=== PATIENT | female | born 1990 | race Caucasian/White ===

== ENCOUNTER 2016-07-28 17:34 | Outpatient (CLI) | payer OTHER ==
[~2016-07-28 17:34] MED LIST: ALBUTEROL0.63 MG/3 IH; AUGMENTIN875 MG PO; BACTRIM,SEPT1 TABLET PO; CAMILA0.35 MG PO; CHROMAGEN,1 CAPSULE PO; FLEXERIL10 MG PO; FLONASE16 G1 BOTH NARES; IBUPROFEN800 MG PO; MACROBID100 MG PO; MOTRIN600 MG PO; MOTRIN800 MG PO; MUCINEX600 MG PO; Motrin PO; NOHOMEMEDS; PEN-VEE K,VEET500 MG PO; PRENA1 TRUE CO1 EACH PO; PRENATAL TABLE1 EAC3 PO; PRENATAL VITAM1 EA10 PO; PRENATAL VITAM1 EAC1 PO; TESSALON PERLE100 MG PO; TYLENOL EXTRA500 MG PO; TYLENOL WITH C1 EACH PO; ULTRAM50 MG PO; ZOFRAN4 MG PO; ZOLOFT25 MG PO; ZYRTEC10 M3 PO; Zoloft PO
[2016-07-28 18:59] VITALS: BP 137/94
[2016-07-28 20:05] VITALS: BP 130/82
[2016-07-28 20:06] LABS: ADD MIUA? YES; BILIRUBIN NEGATIVE; BLOOD NEGATIVE; COLOR YELLOW ((YELLOW)); GLUCOSE (STRIP) NEGATIVE; KETONES NEGATIVE; LEUKOCYTES SMALL; NITRITE NEGATIVE; PROTEIN (STRIP) NEGATIVE; SPECIFIC GRAVITY 1.021 (1.000-1.030); UROBILINOGEN 0.2 MG/DL (0.2-1.0)
[2016-07-28 20:18] LABS: AMPHETAMINES QUANT VALUE 0 NG/ML; BARBITUATES QUANT VALUE 0 NG/ML; BENZODIAZEPINES QUANT VALUE 0 NG/ML; BENZODIAZEPINES, URINE SCREEN Negative (200 ng/mL); MARIJUANA QUANT VALUE 0 NG/ML; OPIATES QUANTITATIVE VALUE 0 NG/ML; PHENCYCLIDINE QUANT VALUE 0 NG/ML
[2016-07-28 20:21] LABS: BACTERIA NONE SEEN /HPF; CASTS NONE SEEN /LPF; CRYSTALS NONE SEEN; EPITHELIAL CELLS 1+ /HPF; MUCUS NONE SEEN /LPF; PATHOLOGICAL CAST NONE SEEN; RED BLOOD CELLS 0-5 /HPF (0-5); SMALL ROUND CELL NONE SEEN; UCUL ADDED? NO; WHITE BLOOD CELLS 0-5 /HPF (0-5); YEAST-LIKE CELL NONE SEEN
[2016-07-28 20:29] LABS: CANDIDA DNA PROBE NEGATIVE; GARDNERELLA DNA PROBE POSITIVE; INTERNAL CONTROL VALID? YES
== END 2016-07-28 21:15 | disposition home or self-care (01) ==
LOC: LDRP-OP → 2WEST 17:35 → LDRP-OP 10-02 21:58
PROVIDERS: Advanced Practice Midwife
DX: M54.5 Low back pain (principal); O99.89 Other specified diseases and conditions complicating pregnancy, childbirth and the puerperium; Z3A.35 35 weeks gestation of pregnancy
CPT/HCPCS: 59025; 80306 90; 81003; 87086; 87480; 87510; 87660; G0378

== ENCOUNTER 2016-08-18 10:55 | Outpatient (CLI) | payer OTHER ==
[~2016-08-18] VITALS: Ht 160 cm; Wt 125.5 kg
[2016-08-18 11:14] VITALS: BP 130/85
[2016-08-18 12:17] VITALS: BP 135/85
[2016-08-18 12:46] LABS: ADD MIUA? NO; BILIRUBIN NEGATIVE; BLOOD NEGATIVE; COLOR YELLOW ((YELLOW)); GLUCOSE (STRIP) NEGATIVE; KETONES 20; LEUKOCYTES NEGATIVE; NITRITE NEGATIVE; PROTEIN (STRIP) NEGATIVE; SPECIFIC GRAVITY 1.015 (1.000-1.030); UCUL ADDED? NO; UROBILINOGEN 0.2 MG/DL (0.2-1.0)
[2016-08-18 13:29] LABS: AMPHETAMINES QUANT VALUE 0 NG/ML; BARBITUATES QUANT VALUE 0 NG/ML; BENZODIAZEPINES QUANT VALUE 0 NG/ML; BENZODIAZEPINES, URINE SCREEN Negative (200 ng/mL); MARIJUANA QUANT VALUE 0 NG/ML; OPIATES QUANTITATIVE VALUE 0 NG/ML; PHENCYCLIDINE QUANT VALUE 0 NG/ML
[2016-08-18 13:43] VITALS: BP 139/77
[2016-08-18 14:30] LABS: CANDIDA DNA PROBE NEGATIVE; GARDNERELLA DNA PROBE NEGATIVE; INTERNAL CONTROL VALID? YES
[2016-08-20 13:40] LABS: CHLAMYDIA TRACHOMATIS NEGATIVE; NEISSERIA GONORRHOEAE NEGATIVE
== END 2016-08-18 14:06 | disposition home or self-care (01) ==
LOC: LDRP-OP 10:55 → 2WEST 10:56 → LDRP-OP 10-02 21:42
PROVIDERS: Advanced Practice Midwife; Obstetrics & Gynecology
DX: O46.93 Antepartum hemorrhage, unspecified, third trimester (principal); O99.89 Other specified diseases and conditions complicating pregnancy, childbirth and the puerperium; Z3A.38 38 weeks gestation of pregnancy
CPT/HCPCS: 59025; 80306 90; 81003; 87086; 87480; 87491; 87510; 87591; 87660; G0378

== ENCOUNTER 2016-08-25 08:06 | Inpatient (IN) | payer OTHER ==
[~2016-08-25] VITALS: Ht 157.5 cm; Wt 127.0 kg
[2016-08-25] VITALS (21 sets, daily range): BP systolic 97–146; BP diastolic 52–92
[2016-08-25] MEDS ORDERED: TYLENOL EXTRA500 MG PO (08:26)
[2016-08-25 09:01] LABS: EOSINOPHIL (%) 1.1 % (0-5); EOSINOPHIL COUNT 0.1 K/uL (0-0.3); IMMATURE GRANULOCYTE (%) 0.3 % (0.0-0.7); LYMPHOCYTE COUNT 1.9 K/uL (1.0-2.8); MCH 27.2 PG (29.0-34.0); MCHC 32.3 G/DL (30.0-36.0); MCV 84.1 FL (83-99); MEAN PLAT.VOLUME 11.9 uM^3 (9.5-12.4); MONOCYTE (%) 5.4 % (3-12); MONOCYTE COUNT 0.4 K/uL (0-0.8); NEUTROPHIL (%) 63.2 % (45-76); NEUTROPHIL COUNT 4.1 K/uL (1.8-6.4); PLATELET COUNT 195 K/uL (156-360); RBC DIS.WIDTH-CV 15.6 % (11.8-14.6); RBC DIS.WIDTH-SD 47.5 % (39-53); RED BLOOD COUNT 4.16 M/uL (3.80-5.20); WHITE BLOOD COUNT 6.5 K/uL (4.1-10.2)
[2016-08-25 09:19] LABS: ANION GAP 12 MEQ/L (2-14); CHLORIDE 103 MEQ/L (99-109); POTASSIUM 3.8 MEQ/L (3.7-5.4); SAMPLE HEMOLYSIS CHECK 0; SAMPLE ICTERIC CHECK 0; SAMPLE LIPEMIA CHECK 0; SODIUM 136 MEQ/L (136-147); TOTAL BILIRUBIN 0.3 MG/DL (0.0-1.0)
[2016-08-25 09:25] LABS: ALKALINE PHOSPHATASE 137 IU/L (3-129); GFR ESTIMATE (CALCULATED) > 59 mL/min/; GLUCOSE 144 mg/dL (70-99); LACTATE DEHYDROGENASE 108 IU/L (20-246); UREA NITROGEN (BUN) 8 mg/dL (9-23); URIC ACID 4.2 mg/dL (3.1-9.2)
[2016-08-26 07:04] LABS: EOSINOPHIL (%) 1.4 % (0-5); EOSINOPHIL COUNT 0.1 K/uL (0-0.3); HEMATOCRIT 30.8 % (36.0-46.0); IMMATURE GRANULOCYTE (%) 0.4 % (0.0-0.7); LYMPHOCYTE COUNT 2.2 K/uL (1.0-2.8); MCHC 30.8 G/DL (30.0-36.0); MCV 84.4 FL (83-99); MEAN PLAT.VOLUME 12.1 uM^3 (9.5-12.4); MONOCYTE (%) 8.3 % (3-12); MONOCYTE COUNT 0.6 K/uL (0-0.8); NEUTROPHIL (%) 60.2 % (45-76); NEUTROPHIL COUNT 4.6 K/uL (1.8-6.4); PLATELET COUNT 149 K/uL (156-360); RBC DIS.WIDTH-CV 15.7 % (11.8-14.6); RBC DIS.WIDTH-SD 48.3 % (39-53); RED BLOOD COUNT 3.65 M/uL (3.80-5.20); WHITE BLOOD COUNT 7.6 K/uL (4.1-10.2)
[2016-08-26 07:39] VITALS: BP 136/87
[2016-08-26 14:58] VITALS: BP 138/70
[2016-08-26 17:08] LABS: UR CREATININE CONCENTRATION 122.5 MG/DL
[2016-08-26 23:52] VITALS: BP 168/88
[2016-08-27 07:28] VITALS: BP 158/92
[2016-08-27 08:45] VITALS: BP 146/86
[2016-08-27] MEDS ORDERED: IBUPROFEN800 MG PO (11:00)
[2016-08-27] MEDS ORDERED: HEMOCYTE324 MG PO (11:01)
[2016-08-27] MEDS ORDERED: SPRINTEC1 EACH PO (11:01)
== END 2016-08-27 12:25 | disposition home or self-care (01) | DRG 774 ==
LOC: LDRP-OP 08:06 → 2WEST 08:07 → LDRP-OP 09:51 → 2WEST 16:05 → LDRP-OP 10-02 14:16
PROVIDERS: Advanced Practice Midwife
PROC: 10E0XZZ Delivery of Products of Conception, External Approach (ICD-10-PCS; principal; 2016-08-25)
PROC: 00HU33Z Insertion of Infusion Device into Spinal Canal, Percutaneous Approach (ICD-10-PCS; principal; 2016-08-25)
PROC: 3E0R3CZ (ICD-10-PCS; principal; 2016-08-25)
PROC: 10907ZC Drainage of Amniotic Fluid, Therapeutic from Products of Conception, Via Natural or Artificial Opening (ICD-10-PCS; principal; 2016-08-25)
PROC: 3E033VJ Introduction of Other Hormone into Peripheral Vein, Percutaneous Approach (ICD-10-PCS; principal; 2016-08-25)
DX: O32.6XX0 Maternal care for compound presentation, not applicable or unspecified (principal); O98.42 Viral hepatitis complicating childbirth; B18.2 Chronic viral hepatitis C; O99.214 Obesity complicating childbirth; E66.01 Morbid (severe) obesity due to excess calories; Z68.42 Body mass index [BMI] 45.0-49.9, adult; O99.52 Diseases of the respiratory system complicating childbirth; J45.909 Unspecified asthma, uncomplicated; Z87.891 Personal history of nicotine dependence; Z37.0 Single live birth; Z3A.39 39 weeks gestation of pregnancy
CPT/HCPCS: 80053; 82570; 83615; 84156; 84550; 85025; C1755; J3010; J7120

== ENCOUNTER 2016-12-26 06:09 | Day surgery (SDC) | payer OTHER ==
[~2016-12-26] VITALS: Ht 158.8 cm; Wt 131.5 kg
[~2016-12-26 06:09] MED LIST changes: +HEMOCYTE324 MG PO; +SPRINTEC1 EACH PO
[2016-12-26 07:43] VITALS: BP 123/79
[2016-12-26] MEDS ORDERED: ENDOCET 5-3251 EACH PO (09:43)
[2016-12-26 11:05] VITALS: BP 94/53
[2016-12-26 11:53] VITALS: BP 107/65
== END 2016-12-26 12:14 | disposition home or self-care (01) ==
LOC: SDC 06:09
PROC: 0U574ZZ Destruction of Bilateral Fallopian Tubes, Percutaneous Endoscopic Approach (ICD-10-PCS; principal; 2016-12-26)
DX: Z30.2 Encounter for sterilization (principal); J45.909 Unspecified asthma, uncomplicated; B18.2 Chronic viral hepatitis C; F17.210 Nicotine dependence, cigarettes, uncomplicated
CPT/HCPCS: J0131; J1100; J1170; J1885; J2250; J2405; J2710; J2765; J3010; S0020

== ENCOUNTER 2017-06-15 18:07 | Emergency (ER) | payer OTHER ==
[~2017-06-15] VITALS: Ht 154.9 cm; Wt 131.3 kg
[~2017-06-15 18:07] MED LIST changes: +ENDOCET 5-3251 EACH PO
[2017-06-15 18:56] LABS: ADD MIUA? YES; BILIRUBIN NEGATIVE; BLOOD NEGATIVE; COLOR YELLOW ((YELLOW)); GLUCOSE (STRIP) NEGATIVE; KETONES NEGATIVE; LEUKOCYTES NEGATIVE; NITRITE NEGATIVE; PROTEIN (STRIP) NEGATIVE; UROBILINOGEN 0.2 MG/DL (0.2-1.0)
[2017-06-15 19:01] LABS: BACTERIA RARE /HPF; EPITHELIAL CELLS 2+ /HPF; MUCUS TRACE /LPF; RED BLOOD CELLS 0-5 /HPF (0-5); UCUL ADDED? NO; WHITE BLOOD CELLS 0-5 /HPF (0-5)
[2017-06-15 19:32] LABS: HEMATOCRIT 40.8 % (36.0-46.0); MCH 26.9 PG (29.0-34.0); MCHC 31.4 G/DL (30.0-36.0); MCV 85.7 FL (83-99); MEAN PLAT.VOLUME 11.1 uM^3 (9.5-12.4); PLATELET COUNT 181 K/uL (156-360); RBC DIS.WIDTH-CV 14.9 % (11.8-14.6); RED BLOOD COUNT 4.76 M/uL (3.80-5.20)
[2017-06-15 19:43] LABS: CHLORIDE 106 mEq/L (99-109); POTASSIUM 4.5 mEq/L (3.7-5.4); SODIUM 138 mEq/L (136-147)
[2017-06-15 19:45] LABS: GLUCOSE 97 mg/dL (70-99)
[2017-06-15 19:47] LABS: ANION GAP 8 MEQ/L (2-14); TOTAL BILIRUBIN 0.5 mg/dL (0.0-1.0)
[2017-06-15 19:49] LABS: ALKALINE PHOSPHATASE 84 IU/L (3-129); GFR ESTIMATE (CALCULATED) > 59 mL/min/
[2017-06-15 19:50] LABS: UREA NITROGEN (BUN) 17 mg/dL (9-23)
[2017-06-15 20:00] LABS: QUANTITATIVE HCG < 4.0 MIU/ML
[2017-06-15] MEDS ORDERED: MOTRIN600 MG PO (20:42)
[2017-06-15 20:54] VITALS: BP 188/96
== END 2017-06-15 20:58 | disposition home or self-care (01) ==
LOC: EME 18:07
PROVIDERS: Physician Assistant
DX: J02.8 Acute pharyngitis due to other specified organisms (principal); R10.32 Left lower quadrant pain; F17.200 Nicotine dependence, unspecified, uncomplicated; F90.9 Attention-deficit hyperactivity disorder, unspecified type; F32.9 Major depressive disorder, single episode, unspecified; B19.20 Unspecified viral hepatitis C without hepatic coma
CPT/HCPCS: 80053; 81003; 84702; 85027; 87502; 87651 90; 99281; 99284

== ENCOUNTER 2017-06-27 00:28 | Emergency (ER) | payer OTHER ==
[~2017-06-27] VITALS: Ht 154.9 cm; Wt 73.9 kg
[2017-06-27 01:23] LABS: HEMATOCRIT 39.4 % (36.0-46.0); HEMOGLOBIN 12.8 G/DL (11.9-15.5); MCH 27.5 PG (29.0-34.0); MCHC 32.5 G/DL (30.0-36.0); MCV 84.7 FL (83-99); PLATELET COUNT 232 K/uL (156-360); RBC DIS.WIDTH-CV 15.1 % (11.8-14.6); RBC DIS.WIDTH-SD 46.6 % (39-53); RED BLOOD COUNT 4.65 M/uL (3.80-5.20); WHITE BLOOD COUNT 8.2 K/uL (4.1-10.2)
[2017-06-27 01:37] LABS: ALBUMIN 4.1 g/dL (3.2-4.8); CHLORIDE 107 mEq/L (99-109); POTASSIUM 3.8 mEq/L (3.7-5.4); SODIUM 142 mEq/L (136-147)
[2017-06-27 01:40] LABS: GLUCOSE 97 mg/dL (70-99); TOTAL PROTEIN 7.2 g/dL (6.4-8.3)
[2017-06-27 01:41] LABS: TOTAL BILIRUBIN 0.2 mg/dL (0.0-1.0)
[2017-06-27 01:42] LABS: SERUM ETHYL ALCOHOL 108 mg/dL
[2017-06-27 01:43] LABS: ALKALINE PHOSPHATASE 87 IU/L (3-129); CREATININE 0.8 mg/dL (0.6-1.3); GFR ESTIMATE (CALCULATED) > 59 mL/min/
[2017-06-27 01:44] LABS: UREA NITROGEN (BUN) 12 mg/dL (9-23)
[2017-06-27 01:45] LABS: AST (GOT) 49 IU/L (2-34)
[2017-06-27 01:46] LABS: ALT (GPT) 78 IU/L (3-49)
[2017-06-27 01:53] LABS: QUANTITATIVE HCG < 4.0 MIU/ML
[2017-06-27 02:19] LABS: ACETAMINOPHEN (TYLENOL) 24 mcg/mL (10-30)
[2017-06-27 02:37] LABS: AMPHETAMINE PRESUMPTIVE POSITIVE (500 ng/mL); BARBITURATES NEGATIVE (200 ng/mL); BENZODIAZEPINES NEGATIVE (150 ng/mL); BUPRENORPHINE NEGATIVE (10 ng/mL); COCAINE NEGATIVE (150 ng/mL); METHADONE NEGATIVE (200 ng/mL); METHAMPHETAMINE NEGATIVE (500 ng/mL); OPIATES (MORPHINE) NEGATIVE (100 ng/mL); OXYCODONE NEGATIVE (100 ng/mL); PHENCYCLIDINE NEGATIVE (25 ng/mL); PROPOXYPHENE NEGATIVE (300 ng/mL); THC CANNABINOIDS NEGATIVE (50 ng/mL); TRICYCLIC ANTIDEPRESSANTS NEGATIVE (300 ng/mL)
[2017-06-27] MEDS ORDERED: COMPAZINE10 MG PO (03:59)
[2017-06-27 04:10] VITALS: BP 146/82
== END 2017-06-27 04:01 | disposition home or self-care (01) ==
LOC: EME → EDBD 00:28 → EME 00:28
PROVIDERS: Emergency Medicine Emergency Medical Services
DX: G43.909 Migraine, unspecified, not intractable, without status migrainosus (principal); T39.1X1A Poisoning by 4-Aminophenol derivatives, accidental (unintentional), initial encounter; F10.10 Alcohol abuse, uncomplicated; F31.9 Bipolar disorder, unspecified; F90.9 Attention-deficit hyperactivity disorder, unspecified type; F32.9 Major depressive disorder, single episode, unspecified; B19.20 Unspecified viral hepatitis C without hepatic coma; F17.200 Nicotine dependence, unspecified, uncomplicated
CPT/HCPCS: 80053; 84702; 84999; 85027; 99281; 99284; G0480; J7040

== ENCOUNTER 2017-09-05 20:46 | Emergency (ER) | payer OTHER ==
[~2017-09-05] VITALS: Ht 157.5 cm; Wt 129.6 kg
[~2017-09-05 20:46] MED LIST changes: +COMPAZINE10 MG PO
[2017-09-05 21:31] LABS: HEMATOCRIT 41.2 % (36.0-46.0); HEMOGLOBIN 13.4 G/DL (11.9-15.5); MCH 27.8 PG (29.0-34.0); MCHC 32.5 G/DL (30.0-36.0); MCV 85.5 FL (83-99); PLATELET COUNT 211 K/uL (156-360); RBC DIS.WIDTH-CV 13.4 % (11.8-14.6); RBC DIS.WIDTH-SD 42.2 % (39-53); RED BLOOD COUNT 4.82 M/uL (3.80-5.20); WHITE BLOOD COUNT 9.6 K/uL (4.1-10.2)
[2017-09-05 21:41] LABS: ALBUMIN 4.3 g/dL (3.2-4.8); CHLORIDE 107 mEq/L (99-109); SODIUM 139 mEq/L (136-147)
[2017-09-05 21:44] LABS: GLUCOSE 95 mg/dL (70-99); TOTAL PROTEIN 7.8 g/dL (6.4-8.3)
[2017-09-05 21:45] LABS: TOTAL BILIRUBIN 0.5 mg/dL (0.0-1.0)
[2017-09-05 21:47] LABS: ALKALINE PHOSPHATASE 94 IU/L (3-129); CREATININE 0.9 mg/dL (0.6-1.3); GFR ESTIMATE (CALCULATED) > 59 mL/min/
[2017-09-05 21:48] LABS: UREA NITROGEN (BUN) 12 mg/dL (9-23)
[2017-09-05 21:49] LABS: AST (GOT) 24 IU/L (2-34)
[2017-09-05 21:50] LABS: ALT (GPT) 39 IU/L (3-49)
[2017-09-05 21:51] LABS: LIPASE 7 U/L (1.0-51.0)
[2017-09-05 21:58] LABS: QUANTITATIVE HCG < 4.0 MIU/ML
[2017-09-05 21:58] LABS: APPEARANCE CLOUDY ((CLEAR)); BILIRUBIN NEGATIVE; BLOOD SMALL; COLOR YELLOW ((YELLOW)); GLUCOSE (STRIP) NEGATIVE; KETONES NEGATIVE; LEUKOCYTES LARGE; NITRITE NEGATIVE; PROTEIN (STRIP) 100; SPECIFIC GRAVITY 1.013 (1.000-1.030); UROBILINOGEN 0.2 MG/DL (0.2-1.0)
[2017-09-05 22:16] LABS: RED BLOOD CELLS RARE /HPF (0-5); WHITE BLOOD CELLS TNTC /HPF (0-5)
[2017-09-05 22:17] LABS: EPITHELIAL CELLS RARE /HPF; MUCUS NONE SEEN /LPF
[2017-09-05 22:18] LABS: BACTERIA 1+ /HPF; UCUL ADDED? YES
[2017-09-05] MEDS ORDERED: BACTRIM,SEPT1 TABLET PO (22:58)
[2017-09-05] MEDS ORDERED: MOTRIN600 MG PO (22:58)
[2017-09-05 23:05] VITALS: BP 136/74
== END 2017-09-05 23:05 | disposition home or self-care (01) ==
LOC: EME 20:46
PROVIDERS: Physician Assistant
DX: N39.0 Urinary tract infection, site not specified (principal); I10 Essential (primary) hypertension; F32.9 Major depressive disorder, single episode, unspecified; F90.9 Attention-deficit hyperactivity disorder, unspecified type; F17.200 Nicotine dependence, unspecified, uncomplicated; B19.20 Unspecified viral hepatitis C without hepatic coma
CPT/HCPCS: 74176; 80053; 81003; 83690; 84702; 85027; 87077; 87086; 87186; 99281; 99284; J1885